=== PATIENT | female | born 1970 | race Caucasian/White ===

== ENCOUNTER 2019-04-26 15:16 | Emergency (ER) | payer MEDICAID, OTHER ==
[~2019-04-26] VITALS: Ht 167.6 cm; Wt 63.5 kg
--- NOTE | 2019-04-26 15:28 | NUR ---
AAOX3, CAME TO ER C/O LEFT ELBOW PAIN, SWELLING, +WOUND S/P FELL OFF HER SCOOTER, -KO. RR IS EVEN AND UNLABORED WITH NAD NOTED. SKIN IS WARM AND DRY. [facility] WNL. DR TAVERAS AT BS FOR EVAL.
[2019-04-26] MEDS ORDERED: CEPHALEXIN MONOHYDRATE 500 MG CAPSULE PO ONE ×2 (15:39→16:00)
[2019-04-26] MEDS ORDERED: TDAP [DIPH/PERTUSSIS/TET] 0.5 ML VIAL IM ONE ×2 (15:39→16:00)
--- NOTE | 2019-04-26 15:46 | NUR ---
XRAY IN PROGRESS AT BS
[2019-04-26 16:20] VITALS: BP 135/91
--- NOTE | 2019-04-26 16:20 | NUR ---
Patient discharged to home in stable condition. Written and verbal after care instructions given. Patient verbalizes understanding of instruction.
== END 2019-04-26 16:21 | disposition home or self-care (01) ==
LOC: ER 15:20
DX: S50.02XA Contusion of left elbow, initial encounter (principal); L03.114 Cellulitis of left upper limb; Z88.0 Allergy status to penicillin; W05.1XXA Fall from non-moving nonmotorized scooter, initial encounter; Y93.I9 Activity, other involving external motion; Y92.89 Other specified places as the place of occurrence of the external cause; Y99.8 Other external cause status
CPT/HCPCS: 73080-TC; 90715